=== PATIENT | female | born 1960 | race American Indian/Alaskan Native ===

== ENCOUNTER 2019-08-23 12:20 | Emergency (ER) | payer OTHER ==
[2019-08-23 13:43] VITALS: BP 168/99
--- NOTE | 2019-08-23 13:54 | Emergency Department Report ---
Chief Complaint: Neck Pain/Injury Stated Complaint: LT NECK PAIN Time Seen by Provider: 08/23/19 13:50 - HPI History of Present Illness: 59 y/o female comes in for left neck pain pain times 1 week. She has been seend by [place] this week. She reports that she works at [employer] and lift heavy object constantly. She has taken over the counter Advil on 400mg last dose this morning. - Exam Vital Signs: Vital Signs 08/23/19 08/23/19 13:35 13:43 Temperature 98.7 F Pulse Rate 68 Respiratory 18 Rate Blood Pressure 168/99 O2 Sat by Pulse 90 99 Oximetry MSE screening note: Focused history and physical exam performed. Due to findings the following was ordered: 59 y/o female comes in for left neck pain pain times 1 week. She has been seend by [place] this week. She reports that she works at [employer] and lift heavy object constantly. She has taken over the counter Advil on 400mg last dose this morning. Recommed to continue with IB take 600mg to 800mg three times a day. Warm compress and over the counter muscle pain rub. Try to avoid lifting heavy objects. Follow up with you Primary Care Provider. ED Disposition for MSE Disposition: Z-07 MED SCREENING EXAM-LEFT Is pt being admited?: No Does the pt Need Aspirin: No Condition: Stable Additional Instructions: Recommed to continue with IB take 600mg to 800mg three times a day. Warm compress and over the counter muscle pain rub. Try to avoid lifting heavy objects. Follow up with you Primary Care Provider. Forms: Work/School Release Form(ED)
== END 2019-08-23 14:57 | disposition left against medical advice (07) ==
LOC: ED 12:20
DX: M54.2 Cervicalgia (principal); Z53.21 Procedure and treatment not carried out due to patient leaving prior to being seen by health care provider